=== PATIENT | male | born 1995 | race Two or more races ===

== ENCOUNTER 2018-03-15 07:07 | Emergency (ER) | payer SELFPAY ==
[2018-03-15] MEDS: oxyCODONE/APAP 5/325 1 TAB TABLET PO (07:50)
== END 2018-03-15 08:59 | disposition home or self-care (01) ==
LOC: ER 07:07
DX: M79.602 Pain in left arm (principal); M79.89 Other specified soft tissue disorders; F12.10 Cannabis abuse, uncomplicated; Z90.49 Acquired absence of other specified parts of digestive tract
CPT/HCPCS: 73060; 76881; 99284-25